=== PATIENT | male | born 1995 | race Caucasian/White ===

== ENCOUNTER 2018-03-08 23:35 | Emergency (ER) | payer SELFPAY ==
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
[2018-03-09] MEDS ORDERED: HYDROcodone 7.5MG/APAP 325MG 1 EA TAB PO ONE (00:12)
[2018-03-09 00:23] VITALS: TEMP 97.3
[2018-03-09] MEDS ORDERED: BACITRACIN 0.9 GM UD PCKT TOP ONE (00:28)
[2018-03-09] MEDS ORDERED: SILVER SULFADIAZINE 1 % 25 GM TUBE TOP ONE (00:28)
[2018-03-09 01:21] VITALS: BP 134/89; O2SAT 98
== END 2018-03-09 01:23 | disposition home or self-care (01) ==
LOC: ER 23:35
DX: T24.212A Burn of second degree of left thigh, initial encounter (principal); T21.26XA Burn of second degree of male genital region, initial encounter; T31.0 Burns involving less than 10% of body surface; X08.8XXA Exposure to other specified smoke, fire and flames, initial encounter; W39.XXXA Discharge of firework, initial encounter; Z88.1 Allergy status to other antibiotic agents

== ENCOUNTER 2018-12-18 18:30 | Emergency (ER) | payer OTHER ==
[2018-12-18] MEDS ORDERED: IPRATROPIUM/ALBUTEROL 3 ML VIAL NEB ONE (19:05)
[2018-12-18] MEDS ORDERED: ONDANSETRON ODT 8 MG TAB SL ONE (19:05)
[2018-12-18] MEDS ORDERED: predniSONE 20 MG TAB PO ONE (19:06)
[2018-12-18] MEDS ORDERED: SUCRALFATE 1 GM/10 ML 1 GM UD PO ONE (19:06)
--- NOTE | 2018-12-18 19:28 | RAD ---
EXAM DESCRIPTION: Chest,2 Views CLINICAL HISTORY: 23 years Male [place], cough COMPARISON: 08/17/2012. FINDINGS: The cardiomediastinal silhouette appears unremarkable. No consolidating infiltrates or pleural effusions. No pneumothorax. IMPRESSION: No acute abnormality is identified. Electronically signed by: Bennie Bojorquez MD 12/18/2018 7:26 PM CDT
[2018-12-18] MEDS ORDERED: AZITHROMYCIN 250 MG TAB PO ONE (19:58)
[2018-12-18] MEDS ORDERED: HYDROcodone 5MG/APAP 325MG 1 EA TAB PO ONE (20:00)
--- NOTE | 2018-12-18 20:01 | ED.PDOC ---
History of Present Illness - General Chief Complaint: Respiratory Problem Stated Complaint: Cough with N&V Time Seen by Provider: 12/18/18 19:05 Source: patient Exam Limitations: no limitations - History of Present Illness Initial Comments: The patient is a 23-year-old male presenting with 3 days of symptoms of cough and mild shortness of breath with epigastric discomfort and nausea and vomiting. He does have a history of asthma but is out of any medications. He does have some mild scattered wheezing. His cough is very consistent with croup. No fevers. He does have a mild sore throat. Mild runny nose. No syncopal or near syncope. Cough is almost uncontrollable. Timing/Duration: other - 3 days Severity: moderate Improving Factors: nothing Worsening Factors: nothing Associated Symptoms: cough, malaise, nausea/vomiting Allergies/Adverse Reactions: Allergies Amoxicillin [From Augmentin] Allergy (Verified 03/09/18 00:12) Clavulanic Acid [From Augmentin] Allergy (Verified 03/09/18 00:12) Home Medications: Ambulatory Orders Acetaminophen W/ Codeine [Tylenol W/ CODEINE #3] 1 ea PO Q6HRS #20 03/09/18 Albuterol Inhaler [Ventolin Hfa Inhaler] 2 puff INH Q4H PRN #1 inh 12/18/18 Azithromycin 500 mg PO DAILY #7 tab 12/18/18 Famotidine 20 mg PO DAILY #30 tab 12/18/18 Guaifenesin-Codeine [Codeine/Guaifenesin 100-10 mg/5Ml] 10 ml PO Q8HR PRN #200 ml 12/18/18 Ondansetron Odt [Zofran ODT] 4 mg PO Q8HR PRN #10 tab 12/18/18 Sucralfate Tab [Carafate Tab] 1 gm PO QID #120 tab 12/18/18 Review of Systems - Review of Systems Constitutional: States: malaise EENTM: States: nose congestion, throat pain Respiratory: States: cough, short of breath, wheezing Cardiology: States: no symptoms reported Gastrointestinal/Abdominal: States: abdominal pain, nausea, vomiting Genitourinary: States: no symptoms reported Musculoskeletal: States: no symptoms reported Skin: States: no symptoms reported Neurological: States: no symptoms reported Endocrine: States: no symptoms reported All other Systems: No Change from Baseline Past Medical History (General) - Patient Medical History Hx Asthma: Yes Hx of COPD: No Hx Cardiac Disorders: No Hx Diabetes: No - Vaccination History Hx Tetanus, Diphtheria Vaccination: Yes Hx Influenza Vaccination: No Hx Pneumococcal Vaccination: No Immunizations Up to Date: No - Social History Hx Tobacco Use: Yes Hx Alcohol Use: No Hx Substance Use: Yes Family Medical History - Family History Father Family History: Unknown Physical Exam - Physical Exam General Appearance: Alert, No apparent distress - coughing incessantly Eye Exam: bilateral normal Ears, Nose, Throat: hearing grossly normal, nasal congestion, pharyngeal erythema Neck: full range of motion, supple Respiratory: no respiratory distress, no accessory muscle use, wheezing - mild scattered Croup-like cough. Mild laryngitis. Cardiovascular/Chest: normal peripheral pulses, regular rate, rhythm, no edema Peripheral Pulses: radial,right: 2+, radial,left: 2+, dorsalis pedis,right: 2+, dorsalis pedis,left: 2+ Gastrointestinal/Abdominal: soft, other - mild epigastric discomfort to palpation. 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 105 H 109 H monitor] Respiratory 20 18 Rate Blood Pressure 136/83 141/91 [left arm] O2 Sat by Pulse 99 97 Oximetry Progress - Progress Progress: 12/18/18 20:03 the patient is a 23-year-old male presenting to the emergency room with respiratory and GI symptoms. From the respiratory standpoint he appears to be having a very mild asthma exacerbation and what clinically appears to be croup. It is uncertain whether this is bacterial or viral. He'll be placed on azithromycin for 7 days in case this is bacterial. He'll be written for an albuterol inhaler for as needed use for his asthma. Additionally he can use a humidifier at night to help reduce cough along with some oral Motrin every 8 hours to reduce inflammation around the vocal cords and upper airways to help reduce cough. He can additionally take Mucinex 2-3 times daily help thin secretions for the same purpose. For the nausea and vomiting, the patient will be written for Zofran for as needed use. He will also be written for Carafate and Pepcid to use for the next month to help reduce gastritis. He can medicinal plant picker some [id number] Maalox to use as needed for gastritis for the next couple of days until other medications get control. He needs to keep himself well hydrated. ER warnings were given for any worsening. Follow up with primary care doctor early next week. - Results/Orders Results/Orders: Laboratory Results - last 24 hr 12/18/18 12/18/18 19:06 19:06 WBC 3.4 L RBC 4.87 Hgb 15.3 Hct 44.0 MCV 90.3 MCH 31.5 H MCHC 34.9 RDW 13.6 Plt Count 122 L MPV 8.9 Absolute Neuts (auto) 2.10 Absolute Lymphs (auto) 0.70 L Absolute Monos (auto) 0.50 Absolute Eos (auto) 0.00 Absolute Basos (auto) 0.00 Neutrophils % 60.8 Lymphocytes % 21.4 Monocytes % 15.7 H Eosinophils % 1.3 Basophils % 0.8 Sodium 138 Potassium 3.7 Chloride 100 L Carbon Dioxide 26 Anion Gap 15.7 BUN 9 Creatinine 0.86 BUN/Creatinine Ratio 10.5 Random Glucose 76 Serum Osmolality 273.1 L Calcium 9.1 Total Bilirubin 1.1 H AST 22 ALT 16 Alkaline Phosphatase 64 Serum Total Protein 7.5 Albumin 4.4 Globulin 3.1 Albumin/Globulin Ratio 1.4 Amylase 37 Lipase 20 L chest x-ray is grossly within normal limits. Departure - Departure Clinical Impression: Croup, Mild dehydration Asthma exacerbation Qualifiers: Asthma severity: mild Asthma persistence: intermittent Qualified Code(s): J45.21 - Mild intermittent asthma with (acute) exacerbation Gastritis Qualifiers: Gastritis type: unspecified gastritis Chronicity: acute Gastritis bleeding: without bleeding Qualified Code(s): K29.00 - Acute gastritis without bleeding Disposition: Discharge to Home or Self Care Condition: Fair Departure Forms: ED Discharge - Pt. Copy, Patient Portal Self Enrollment Instructions: DI for Asthma -- Adult, Croup (DC), Gastritis (DC) Diet: bland diet Activity: increase activity as tolerated Prescriptions: Guaifenesin-Codeine [Codeine/Guaifenesin 100-10 mg/5Ml] 10 ml PO Q8HR PRN #200 ml PRN Reason: Cough Ondansetron Odt [Zofran ODT] 4 mg PO Q8HR PRN #10 tab PRN Reason: Nausea--Moderate Albuterol Inhaler [Ventolin Hfa Inhaler] 2 puff INH Q4H PRN #1 inh PRN Reason: Shortness Of Breath Azithromycin 500 mg PO DAILY #7 tab Famotidine 20 mg PO DAILY #30 tab Sucralfate Tab [Carafate Tab] 1 gm PO QID #120 tab Home Medications: Ambulatory Orders Acetaminophen W/ Codeine [Tylenol W/ CODEINE #3] 1 ea PO Q6HRS #20 03/09/18 Albuterol Inhaler [Ventolin Hfa Inhaler] 2 puff INH Q4H PRN #1 inh 12/18/18 Azithromycin 500 mg PO DAILY #7 tab 12/18/18 Famotidine 20 mg PO DAILY #30 tab 12/18/18 Guaifenesin-Codeine [Codeine/Guaifenesin 100-10 mg/5Ml] 10 ml PO Q8HR PRN #200 ml 12/18/18 Ondansetron Odt [Zofran ODT] 4 mg PO Q8HR PRN #10 tab 12/18/18 Sucralfate Tab [Carafate Tab] 1 gm PO QID #120 tab 12/18/18 Additional Instructions: the patient is a 23-year-old male presenting to the emergency room with respiratory and GI symptoms. From the respiratory standpoint he appears to be having a very mild asthma exacerbation and what clinically appears to be croup. It is uncertain whether this is bacterial or viral. He'll be placed on azithromycin for 7 days in case this is bacterial. He received 1 dose of azithromycin one dose of prednisone here tonight. He'll be written for an albuterol inhaler for as needed use for his asthma. Additionally he can use a humidifier at night to help reduce cough along with some oral Motrin every 8 hours to reduce inflammation around the vocal cords and upper airways to help reduce cough. He can additionally take Mucinex 2-3 times daily help thin secretions for the same purpose. For the nausea and vomiting, the patient will be written for Zofran for as needed use. He will also be written for Carafate and Pepcid to use for the next month to help reduce gastritis. He can medicinal plant picker some [id number] Maalox to use as needed for gastritis for the next couple of days until other medications get control. He needs to keep himself well hydrated. ER warnings were given for any worsening. Follow up with primary care doctor early next week. [id number] Zyrtec may also help as a daily dose and reducing runny nose and secretions triggering cough.
[2018-12-18 20:20] VITALS: BP 104/83; TEMP 99.4; O2SAT 100
== END 2018-12-18 20:20 | disposition home or self-care (01) ==
LOC: ER 18:30
DX: J05.0 Acute obstructive laryngitis [croup] (principal); E86.0 Dehydration; J45.21 Mild intermittent asthma with (acute) exacerbation; R11.2 Nausea with vomiting, unspecified; Z87.891 Personal history of nicotine dependence; Z79.899 Other long term (current) drug therapy; Z88.1 Allergy status to other antibiotic agents
CPT/HCPCS: 36415; 71046; 80053; 82150; 83690; 85025; 87502; 94640; J7512; J7620

== ENCOUNTER 2019-08-08 02:37 | Emergency (ER) | payer OTHER ==
[2019-08-08 02:52] VITALS: TEMP 97.2; O2SAT 99
[2019-08-08] MEDS ORDERED: TETRACAINE HCL 0.5% OPHTH SOL 1 DROP ONE (03:07)
[2019-08-08] MEDS ORDERED: TETRACAINE HCL 0.5% OPHTH SOL 1 DROP LEFT_EYE ONE (03:12)
[2019-08-08] MEDS ORDERED: ERYTHROMYCIN OPHTH OINT 1 APPLIC LEFT_EYE ONE (03:25)
--- NOTE | 2019-08-08 03:28 | ED.PDOC ---
History of Present Illness - General Chief Complaint: Eye Problems Stated Complaint: has wood in his eye Time Seen by Provider: 08/08/19 03:24 Source: patient Exam Limitations: no limitations - History of Present Illness Initial Comments: The patient is a 24-year-old male presented emergency room secondary to discomfort and blurry vision in his left eye after having gotten a foreign body in it 2 days ago while woodworking. No other injury. Timing/Duration: other - 2 days Severity: moderate Improving Factors: nothing Worsening Factors: nothing Associated Symptoms: denies symptoms Allergies/Adverse Reactions: Allergies Amoxicillin [From Augmentin] Allergy (Verified 08/08/19 03:10) Clavulanic Acid [From Augmentin] Allergy (Verified 08/08/19 03:10) Home Medications: Ambulatory Orders Acetaminophen W/ Codeine [Tylenol W/ CODEINE #3] 1 ea PO Q6HRS #20 03/09/18 Albuterol Inhaler [Ventolin Hfa Inhaler] 2 puff INH Q4H PRN #1 inh 12/18/18 Azithromycin 500 mg PO DAILY #7 tab 12/18/18 Famotidine 20 mg PO DAILY #30 tab 12/18/18 Guaifenesin-Codeine [Codeine/Guaifenesin 100-10 mg/5Ml] 10 ml PO Q8HR PRN #200 ml 12/18/18 Ondansetron Odt [Zofran ODT] 4 mg PO Q8HR PRN #10 tab 12/18/18 Sucralfate Tab [Carafate Tab] 1 gm PO QID #120 tab 12/18/18 Review of Systems - Review of Systems Constitutional: States: no symptoms reported EENTM: States: see HPI Respiratory: States: no symptoms reported Cardiology: States: no symptoms reported Gastrointestinal/Abdominal: States: no symptoms reported Genitourinary: States: no symptoms reported Musculoskeletal: States: no symptoms reported Skin: States: no symptoms reported Neurological: States: no symptoms reported Endocrine: States: no symptoms reported All other Systems: No Change from Baseline Past Medical History (General) - Patient Medical History Hx Seizures: No Hx Stroke: No Hx Dementia: No Hx Asthma: Yes Hx of COPD: No Hx Cardiac Disorders: No Hx Congestive Heart Failure: No Hx Pacemaker: No Hx Hypertension: No Hx Thyroid Disease: No Hx Diabetes: No Hx Gastroesophageal Reflux: No Hx Renal Disease: No Hx Cancer: No Hx of HIV: No Hx Hepatitis C: No Hx MRSA: No Surgical History: other - Vaccination History Hx Tetanus, Diphtheria Vaccination: Yes Hx Influenza Vaccination: No Hx Pneumococcal Vaccination: No - Social History Hx Tobacco Use: Yes Hx Chewing Tobacco Use: No Hx Alcohol Use: No Hx Substance Use: No Hx Substance Use Treatment: No Hx Depression: No Feels Threatened In Home Enviroment: No Feels Threatened In a Relationship: No Hx Physical Abuse: No Hx Emotional Abuse: No Hx Suspected Abuse: No - Female History Patient is a Female of Child Bearing Age (10 -59 yrs old): No - Triage Comment ED Triage Comment: The patient had pain in his left eye from wood shavings and the eye appears irritated and is watering. Family Medical History - Family History Father Family History: Unknown Physical Exam - Physical Exam General Appearance: Alert, Comfortable, No apparent distress Eye Exam: right normal, left other - Fluorescein exam shows a small foreign body in the cornea at approximately 9:00. Pupil is reactive. Extraocular movements are intact. No evidence of globe penetration. 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 Risk and benefits of removal were explained and the patient agrees to proceed. Tetracaine drops were applied along with the fluorescein for the exam. A small bur followed by a 20- gauge needle were used for removal of the foreign object. Patient tolerated this well. Erythromycin ointment was applied. The patient needs to use about 1 cm of erythromycin ointment to the left eye every 4 hours for the next 3 days and then every 6 hours for the next 5 or 6 days after that. In between he is to use preservative-free eyedrops to keep the eye moist. He needs to use goggles keep the eye from drying out. Aleve or Advil can be used for discomfort. ER warnings are given for any significant worsening. Vision should start clearing up in about 48 hours. [email or web address] [email or web address] [id number] Departure - Departure Clinical Impression: Corneal injury Qualifiers: Encounter type: initial encounter Laterality: left Qualified Code(s): S05.8X2A - Other injuries of left eye and orbit, initial encounter Disposition: Discharge to Home or Self Care Condition: Fair Departure Forms: ED Discharge - Pt. Copy, Patient Portal Self Enrollment Instructions: Corneal Abrasion (DC) Diet: regular diet Activity: increase activity as tolerated Home Medications: Ambulatory Orders Acetaminophen W/ Codeine [Tylenol W/ CODEINE #3] 1 ea PO Q6HRS #20 03/09/18 Albuterol Inhaler [Ventolin Hfa Inhaler] 2 puff INH Q4H PRN #1 inh 12/18/18 Azithromycin 500 mg PO DAILY #7 tab 12/18/18 Famotidine 20 mg PO DAILY #30 tab 12/18/18 Guaifenesin-Codeine [Codeine/Guaifenesin 100-10 mg/5Ml] 10 ml PO Q8HR PRN #200 ml 12/18/18 Ondansetron Odt [Zofran ODT] 4 mg PO Q8HR PRN #10 tab 12/18/18 Sucralfate Tab [Carafate Tab] 1 gm PO QID #120 tab 12/18/18 Additional Instructions: The patient is a 24-year-old male presented emergency room secondary to a foreign body in the left cornea for the last 2 days. Risk and benefits of removal were explained and the patient agrees to proceed. Tetracaine drops were applied along with the fluorescein for the exam. A small bur followed by a 20- gauge needle were used for removal of the foreign object. Patient tolerated this well. Erythromycin ointment was applied. The patient needs to use about 1 cm of erythromycin ointment to the left eye every 4 hours for the next 3 days and then every 6 hours for the next 5 or 6 days after that. In between he is to use preservative-free eyedrops to keep the eye moist. He needs to use goggles keep the eye from drying out. Aleve or Advil can be used for discomfort. ER warnings are given for any significant worsening. Vision should start clearing up in about 48 hours.
[2019-08-08 03:42] VITALS: BP 134/97
== END 2019-08-08 03:42 | disposition home or self-care (01) ==
LOC: ER 02:37
DX: T15.02XA Foreign body in cornea, left eye, initial encounter (principal); J45.909 Unspecified asthma, uncomplicated; X58.XXXA Exposure to other specified factors, initial encounter; Y93.89 Activity, other specified; Y92.9 Unspecified place or not applicable; Z87.891 Personal history of nicotine dependence; Z88.1 Allergy status to other antibiotic agents

== ENCOUNTER 2019-12-17 03:08 | Emergency (ER) | payer OTHER ==
[2019-12-17] MEDS ORDERED: TETRACAINE HCL 0.5% OPHTH SOL 1 DROP LEFT_EYE ONE (03:25)
[2019-12-17] MEDS ORDERED: TETRACAINE HCL 0.5% OPHTH SOL 1 DROP ONE (03:25)
[2019-12-17] MEDS ORDERED: FLUORESCEIN SODIUM OPHTH STRIP ONE (03:25)
[2019-12-17] MEDS ORDERED: FLUORESCEIN SODIUM OPHTH STRIP LEFT_EYE ONE (03:25)
[2019-12-17 03:30] VITALS: BP 153/94; TEMP 98; O2SAT 98
[2019-12-17] MEDS ORDERED: ERYTHROMYCIN OPHTH OINT 1 APPLIC BOTH_EYES ONE (03:32)
[2019-12-17] MEDS ORDERED: IBUPROFEN 200 MG TAB PO ONE (03:33)
[2019-12-17] MEDS ORDERED: HYDROcodone 7.5MG/APAP 325MG 1 EA TAB PO ONE (03:33)
--- NOTE | 2019-12-17 03:36 | ED.PDOC ---
History of Present Illness - General Chief Complaint: Eye Problems Stated Complaint: I burned my eye welding Wednesday Time Seen by Provider: 12/17/19 03:32 Source: patient Exam Limitations: no limitations - History of Present Illness Initial Comments: The patient is a 24-year-old male presenting secondary to eye pain to bilateral eyes but worse in his left eye starting this evening. The patient did some welding earlier in the day. No contact use. Mild blurry vision. There is increased injection in the conjunctive a primarily of the left eye. Extraocular movements are intact. No proptosis. Pupils are reactive. Fluorescein exam shows no focal defect of there is scattered mild increased fluorescein uptake. Additionally the patient is complaining of a lymphadenopathy just anterior to the left ear as well as just to the left posterior cervical chain. These have been present for about a month according to him. No other complaints. No fevers and no weight loss. Timing/Duration: 4-6 hours Severity: severe Improving Factors: nothing Worsening Factors: nothing Associated Symptoms: denies symptoms Allergies/Adverse Reactions: Allergies Amoxicillin [From Augmentin] Allergy (Verified 08/08/19 03:10) Clavulanic Acid [From Augmentin] Allergy (Verified 08/08/19 03:10) Home Medications: Ambulatory Orders Erythromycin Ophth Oint 0.3 inch BOTH_EYES Q6HR #7 day 12/17/19 levoFLOXacin [Levaquin] 500 mg PO DAILY #10 tab 12/17/19 Review of Systems - Review of Systems Constitutional: States: no symptoms reported EENTM: States: eye pain, blurred vision Respiratory: States: no symptoms reported Cardiology: States: no symptoms reported Gastrointestinal/Abdominal: States: no symptoms reported Genitourinary: States: no symptoms reported Musculoskeletal: States: no symptoms reported Skin: States: no symptoms reported Neurological: States: no symptoms reported Endocrine: States: no symptoms reported Hematologic/Lymphatic: States: swollen glands All other Systems: No Change from Baseline Past Medical History (General) - Patient Medical History Hx Seizures: No Hx Stroke: No Hx Dementia: No Hx Asthma: Yes Hx of COPD: No Hx Cardiac Disorders: No Hx Congestive Heart Failure: No Hx Pacemaker: No Hx Hypertension: No Hx Thyroid Disease: No Hx Diabetes: No Hx Gastroesophageal Reflux: No Hx Renal Disease: No Hx Cancer: No Hx of HIV: No Hx Hepatitis C: No Hx MRSA: No - Vaccination History Hx Tetanus, Diphtheria Vaccination: No Hx Influenza Vaccination: No Hx Pneumococcal Vaccination: No Immunizations Up to Date: No - Social History Hx Tobacco Use: Yes Hx Chewing Tobacco Use: No Hx Alcohol Use: Yes Hx Substance Use: No Hx Substance Use Treatment: No Hx Depression: No Hx Physical Abuse: No Hx Emotional Abuse: No Hx Suspected Abuse: No Family Medical History - Family History Father Family History: Unknown Physical Exam - Physical Exam General Appearance: Alert, No apparent distress Eye Exam: bilateral other - See history of present illness Ears, Nose, Throat: hearing grossly normal, normal pharynx Neck: supple, other - See history of present illness Respiratory: no respiratory distress, no accessory muscle use Cardiovascular/Chest: other - Regular rate Peripheral Pulses: radial,right: 2+, radial,left: 2+ Gastrointestinal/Abdominal: non tender, soft Rectal Exam: deferred Extremity: normal range of motion, no calf tenderness, normal capillary refill 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 The patient will be written for erythromycin ointment to be used 4 times a day for the next week. He can additionally use preservative-free rewetting drops every hour in between to help reduce discomfort. He can also use Motrin or Aleve 2-3 times daily to relieve discomfort. Cool compresses can also help. The patient also has mild scattered lymphadenopathy to the left side of the posterior cervical chain as well as a lymph node just anterior to the left ear. The patient is going to be placed on 10 days of Levaquin, based on allergies. He needs to follow-up with his primary care doctor in about 3 to 4 weeks for repeat evaluation of the lymph nodes. If they are still significantly present then additional work-up would be warranted in the form of blood work and possibly a biopsy. Obviously if things are worsening between now and then then he should seek reevaluation sooner. ER warnings are given for any significant worsening. [email or web address] greer [id number] Departure - Departure Clinical Impression: Keratopathy, Cervical lymphadenopathy Disposition: Discharge to Home or Self Care Condition: Fair Departure Forms: ED Discharge - Pt. Copy, Patient Portal Self Enrollment Instructions: DI for Eye Pain, Lymphadenitis (DC) Diet: regular diet Activity: increase activity as tolerated Prescriptions: Erythromycin Ophth Oint 0.3 inch BOTH_EYES Q6HR #7 day levoFLOXacin [Levaquin] 500 mg PO DAILY #10 tab Home Medications: Ambulatory Orders Erythromycin Ophth Oint 0.3 inch BOTH_EYES Q6HR #7 day 12/17/19 levoFLOXacin [Levaquin] 500 mg PO DAILY #10 tab 12/17/19 Additional Instructions: The patient is a 24-year-old male presented emergency room secondary to thermal keratopathy of bilateral eyes due to welding yesterday. The patient will be written for erythromycin ointment to be used 4 times a day for the next week. He can additionally use preservative-free rewetting drops every hour in between to help reduce discomfort. He can also use Motrin or Aleve 2-3 times daily to relieve discomfort. Cool compresses can also help. The patient also has mild scattered lymphadenopathy to the left side of the posterior cervical chain as well as a lymph node just anterior to the left ear. The patient is going to be placed on 10 days of Levaquin, based on allergies. He needs to follow-up with his primary care doctor in about 3 to 4 weeks for repeat evaluation of the lymph nodes. If they are still significantly present then additional work-up would be warranted in the form of blood work and possibly a biopsy. Obviously if things are worsening between now and then then he should seek reevaluation sooner. ER warnings are given for any significant worsening.
== END 2019-12-17 04:00 | disposition home or self-care (01) ==
LOC: ER 03:08
DX: H16.133 Photokeratitis, bilateral (principal); W89.8XXA Exposure to other man-made visible and ultraviolet light, initial encounter; R59.0 Localized enlarged lymph nodes; J45.909 Unspecified asthma, uncomplicated; Z87.891 Personal history of nicotine dependence; Z88.1 Allergy status to other antibiotic agents; Y92.9 Unspecified place or not applicable; Y93.89 Activity, other specified

== ENCOUNTER 2020-03-01 04:34 | Emergency (ER) | payer MEDICAID, SELFPAY ==
[2020-03-01] MEDS ORDERED: SODIUM CHLORIDE 0.9% 1000ML 1,000 ML IVS ONE (04:49)
[2020-03-01] MEDS ORDERED: ALUM & MAG HYDROX-SIMETHICONE 30 ML, LIDOCAINE VISCOUS 2% 15 ML PO ONE ×2 (04:49)
[2020-03-01] MEDS ORDERED: ONDANSETRON ODT 8 MG TAB SL ONE (04:49)
[2020-03-01] MEDS ORDERED: PANTOPRAZOLE SODIUM IV 40 MG VIAL IV ONE (04:51)
--- NOTE | 2020-03-01 05:24 | RAD ---
EXAM DESCRIPTION: Abdomen Series, 3 Views CLINICAL HISTORY: abd pain COMPARISON: Chest x-ray 12/18/2018 FINDINGS: Cardiac silhouette is within normal limits. There is no focal parenchymal or pleural disease in the chest. No free air. Bowel gas pattern is unremarkable. No evidence of bowel obstruction. There is no acute osseous process visualized. IMPRESSION: No evidence of acute cardiopulmonary disease. No free air. No evidence of bowel obstruction. Electronically signed by: Walter Hernandez MD 03/01/2020 5:22 AM CDT
[2020-03-01] MEDS ORDERED: MAGNESIUM HYDROXIDE 30 ML UD PO ONE (06:10)
[2020-03-01] MEDS ORDERED: FAMOTIDINE 20 MG TAB PO ONE (06:10)
--- NOTE | 2020-03-01 06:13 | ED.PDOC ---
History of Present Illness - General Chief Complaint: Abdominal Pain Stated Complaint: LUQ pain x4 days Time Seen by Provider: 03/01/20 04:45 Source: patient Exam Limitations: no limitations - History of Present Illness Initial Comments: The patient is a 24-year-old male presenting to the emergency room secondary to abdominal pain for the last 4 days. He reports it is mainly localized to the left upper quadrant at this point. He had one episode of vomiting mainly frothy material. No blood. He has had a history of gastritis and reflux disease in the past but has not been on medications in several years. He has had reflux symptoms over that time however. He denies significant constipation or diarrhea. No fever. The patient does report vague diffuse abdominal discomfort but pain is definitely worse in the left upper quadrant. No recent trauma. Mild decreased oral intake. Timing/Duration: other - 4 days Severity: moderate Improving Factors: nothing Worsening Factors: nothing Associated Symptoms: loss of appetite, nausea/vomiting Allergies/Adverse Reactions: Allergies Amoxicillin [From Augmentin] Allergy (Verified 08/08/19 03:10) Clavulanic Acid [From Augmentin] Allergy (Verified 08/08/19 03:10) Home Medications: Ambulatory Orders Erythromycin Ophth Oint 0.3 inch BOTH_EYES Q6HR #7 day 12/17/19 levoFLOXacin [Levaquin] 500 mg PO DAILY #10 tab 12/17/19 Famotidine [Pepcid Tab] 20 mg PO BID #60 tab 03/01/20 Sucralfate Tab [Carafate Tab] 1 gm PO QID #120 tab 03/01/20 Review of Systems - Review of Systems Constitutional: States: malaise EENTM: States: no symptoms reported Respiratory: States: no symptoms reported Cardiology: States: no symptoms reported Gastrointestinal/Abdominal: States: abdominal pain, nausea, vomiting Genitourinary: States: no symptoms reported Musculoskeletal: States: no symptoms reported Skin: States: no symptoms reported Neurological: States: no symptoms reported Endocrine: States: no symptoms reported All other Systems: No Change from Baseline Past Medical History (General) - Patient Medical History Hx Seizures: No Hx Stroke: No Hx Dementia: No Hx Asthma: Yes Hx of COPD: No Hx Cardiac Disorders: No Hx Congestive Heart Failure: No Hx Pacemaker: No Hx Hypertension: No Hx Thyroid Disease: No Hx Diabetes: No Hx Gastroesophageal Reflux: No Hx Renal Disease: No Hx Cancer: No Hx of HIV: No Hx Hepatitis C: No Hx MRSA: No Surgical History: other - Vaccination History Hx Tetanus, Diphtheria Vaccination: Yes Hx Influenza Vaccination: No Hx Pneumococcal Vaccination: No - Social History Hx Tobacco Use: Yes Hx Chewing Tobacco Use: No Hx Alcohol Use: Yes Hx Substance Use: No Hx Substance Use Treatment: No Hx Depression: No Hx Physical Abuse: No Hx Emotional Abuse: No Hx Suspected Abuse: No Family Medical History - Family History Father Family History: Unknown Physical Exam - Physical Exam General Appearance: Alert, Other - Uncomfortable Ears, Nose, Throat: hearing grossly normal, normal pharynx Neck: non-tender, supple Respiratory: lungs clear, normal breath sounds, no respiratory distress, no accessory muscle use Cardiovascular/Chest: normal peripheral pulses, regular rate, rhythm, no edema Peripheral Pulses: radial,right: 2+, radial,left: 2+ Gastrointestinal/Abdominal: other - Mild diffuse voluntary guarding. Point tenderness in the left upper quadrant. No definite rebound. 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 Patient does have a history of gastritis and has had symptoms. We will restart the patient on medications in the form of Pepcid twice daily for the next month as well as Carafate for the next month. He can use liquid Maalox additionally as needed. Needs to maintain a bland diet with small frequent meals. Needs to keep himself hydrated as he was mildly dehydrated here today. He did receive a liter of IV fluids for that. Patient also needs to avoid nicotine and caffeine as well as spicy foods. Additionally he does have mild constipation on the x-ray and did receive a dose of milk of magnesia here today. Remaining well-hydrated should help that issue as well. Laboratory work and vital signs are otherwise reassuring. He does have some moderate hypertension however that is likely reactive and can be followed with his primary care doctor. Return to the emergency room for any significant worsening. ER warnings are given. [email or web address] [email or web address] [id number] - Results/Orders Results/Orders: Acute abdominal series shows no acute pathology. There does appear to be some mild constipation in the ascending colon as well as at the splenic flexure. No free air no obstruction. 03/01/20 05:08 BLOOD CULTURE Stat Laboratory Results - last 24 hr 03/01/20 03/01/20 03/01/20 04:49 04:49 04:49 WBC 5.1 RBC 4.98 Hgb 14.8 Hct 42.7 MCV 85.8 MCH 29.7 MCHC 34.6 RDW 13.3 Plt Count 188 MPV 8.6 Absolute Neuts (auto) 3.20 Absolute Lymphs (auto) 1.30 Absolute Monos (auto) 0.40 Absolute Eos (auto) 0.10 Absolute Basos (auto) 0.00 Neutrophils % 63.0 Lymphocytes % 26.6 Monocytes % 7.7 Eosinophils % 1.8 Basophils % 0.9 Sodium 139 Potassium 3.7 Chloride 101 Carbon Dioxide 27 Anion Gap 14.7 BUN 13 Creatinine 0.89 BUN/Creatinine Ratio 14.6 Random Glucose 100 Serum Osmolality 277.7 Lactic Acid 0.7 Calcium 9.0 Magnesium 2.1 Total Bilirubin 0.9 AST 17 ALT 16 Alkaline Phosphatase 78 Creatine Kinase 204 H* CK-MB (CK-2) 1.2 CK-MB (CK-2) % Not Reportable Troponin I < 0.02 Serum Total Protein 7.9 Albumin 4.8 Globulin 3.1 Albumin/Globulin Ratio 1.5 Amylase 46 Lipase 26 Urine Color Urine Appearance Urine pH Ur Specific [place] Urine Protein Urine Glucose (UA) Urine Ketones Urine Blood Urine Nitrite Urine Bilirubin Urine Urobilinogen Ur Leukocyte Esterase Urine RBC Urine WBC Ur Epithelial Cells Urine Bacteria Urine Mucus 03/01/20 05:34 WBC RBC Hgb Hct MCV MCH MCHC RDW Plt Count MPV Absolute Neuts (auto) Absolute Lymphs (auto) Absolute Monos (auto) Absolute Eos (auto) Absolute Basos (auto) Neutrophils % Lymphocytes % Monocytes % Eosinophils % Basophils % Sodium Potassium Chloride Carbon Dioxide Anion Gap BUN Creatinine BUN/Creatinine Ratio Random Glucose Serum Osmolality Lactic Acid Calcium Magnesium Total Bilirubin AST ALT Alkaline Phosphatase Creatine Kinase CK-MB (CK-2) CK-MB (CK-2) % Troponin I Serum Total Protein Albumin Globulin Albumin/Globulin Ratio Amylase Lipase Urine Color Yellow Urine Appearance Clear Urine pH 6.0 Ur Specific [place] >= 1.030 Urine Protein Trace Urine Glucose (UA) Negative Urine Ketones Negative Urine Blood Negative Urine Nitrite Negative Urine Bilirubin Negative Urine Urobilinogen 0.2 Ur Leukocyte Esterase Negative Urine RBC 0 Urine WBC 0 Ur Epithelial Cells 0 Urine Bacteria 0 Urine Mucus Trace Departure - Departure Clinical Impression: Mild dehydration, Benign reactive hypertension Gastritis Qualifiers: Gastritis type: unspecified gastritis Chronicity: chronic Gastritis bleeding: without bleeding Qualified Code(s): K29.50 - Unspecified chronic gastritis without bleeding Constipation Qualifiers: Constipation type: unspecified constipation type Qualified Code(s): K59.00 - Constipation, unspecified Disposition: Discharge to Home or Self Care Condition: Fair Departure Forms: ED Discharge - Pt. Copy, Patient Portal Self Enrollment Instructions: DI for Abdominal Pain-Adult, Gastritis (DC) Diet: bland diet Activity: increase activity as tolerated Prescriptions: Sucralfate Tab [Carafate Tab] 1 gm PO QID #120 tab Famotidine [Pepcid Tab] 20 mg PO BID #60 tab Home Medications: Ambulatory Orders Erythromycin Ophth Oint 0.3 inch BOTH_EYES Q6HR #7 day 12/17/19 levoFLOXacin [Levaquin] 500 mg PO DAILY #10 tab 12/17/19 Famotidine [Pepcid Tab] 20 mg PO BID #60 tab 03/01/20 Sucralfate Tab [Carafate Tab] 1 gm PO QID #120 tab 03/01/20 Additional Instructions: The patient is a 24-year-old male presented emergency room secondary to 4 days of abdominal discomfort and an episode of vomiting. Patient does have a history of gastritis and has had symptoms. We will restart the patient on medications in the form of Pepcid twice daily for the next month as well as Carafate for the next month. He can use liquid Maalox additionally as needed. Needs to maintain a bland diet with small frequent meals. Needs to keep himself hydrated as he was mildly dehydrated here today. He did receive a liter of IV fluids for that. Patient also needs to avoid nicotine and caffeine as well as spicy foods. Additionally he does have mild constipation on the x-ray and did receive a dose of milk of magnesia here today. Remaining well-hydrated should help that issue as well. Laboratory work and vital signs are otherwise reassuring. He does have some moderate hypertension however that is likely reactive and can be followed with his primary care doctor. Return to the emergency room for any significant worsening. ER warnings are given.
[2020-03-01 06:17] VITALS: O2SAT 98
[2020-03-01 06:24] VITALS: BP 157/114; TEMP 97.7
== END 2020-03-01 06:24 | disposition home or self-care (01) ==
LOC: ER 04:34
DX: K29.50 Unspecified chronic gastritis without bleeding (principal); E86.0 Dehydration; I10 Essential (primary) hypertension; K59.00 Constipation, unspecified; Z87.891 Personal history of nicotine dependence; Z79.899 Other long term (current) drug therapy; Z88.1 Allergy status to other antibiotic agents
CPT/HCPCS: 36415; 74019; 80053; 81001; 82150; 82550; 82553; 83605; 83690; 83735; 84484; 85025; 87040; 87635; J7030

== ENCOUNTER 2020-05-31 17:17 | Emergency (ER) | payer MEDICAID, OTHER ==
[2020-05-31] MEDS ORDERED: SODIUM CHLORIDE 0.9% 1000ML 1,000 ML IVS ONE ×2 (17:22→23:14)
--- NOTE | 2020-05-31 17:25 | ED.PDOC ---
History of Present Illness - History of Present Illness Initial Comments: 24-year-old male no known past medical history presents via EMS to ED for complaint of suicide attempt. EMS reports that they were called to scene by family and notified that he locked himself in his shed. Patient appeared to be combative and likely have overdosed on unknown substance. Patient was found with multiple vitamin bottles In the vicinity. Patient also has self-inflicted superficial cut wounds to his left anterior wrist as well as old well-healed similar self-inflicted wounds. Patient was given 2 mg IM Ativan, 50 mg IM Benadryl, 5 mg IM Haldol. Patient has since called for them but remains altered. <Cipriano Rodriguez - Last Filed: 06/01/20 06:33> <Laly Gray - Last Filed: 06/01/20 23:34> - General Time Seen by Provider: 05/31/20 17:21 - History of Present Illness Allergies/Adverse Reactions: Allergies Amoxicillin [From Augmentin] Allergy (Verified 08/08/19 03:10) Clavulanic Acid [From Augmentin] Allergy (Verified 08/08/19 03:10) Home Medications: Ambulatory Orders NK 05/31/20 Review of Systems - Review of Systems Respiratory: Denies: short of breath Cardiology: Denies: chest pain Unable to Obtain Due To: clinical condition <Cipriano Rodriguez - Last Filed: 06/01/20 06:33> Past Medical History (General) - Patient Medical History Hx Seizures: No Hx Stroke: No Hx Dementia: No Hx Asthma: Yes Hx of COPD: No Hx Cardiac Disorders: No Hx Congestive Heart Failure: No Hx Pacemaker: No Hx Hypertension: No Hx Thyroid Disease: No Hx Diabetes: No Hx Gastroesophageal Reflux: No Hx Renal Disease: No Hx Cancer: No Hx of HIV: No Hx Hepatitis C: No Hx MRSA: No - Vaccination History Hx Tetanus, Diphtheria Vaccination: Yes Hx Influenza Vaccination: No Hx Pneumococcal Vaccination: No - Social History Hx Tobacco Use: Yes Hx Chewing Tobacco Use: No Hx Alcohol Use: Yes Hx Substance Use: No Hx Substance Use Treatment: No Hx Depression: No Hx Physical Abuse: No Hx Emotional Abuse: No Hx Suspected Abuse: No <Cipriano Rodriguez - Last Filed: 06/01/20 06:33> Family Medical History - Family History Father Family History: Unknown <Cipriano Rodriguez - Last Filed: 06/01/20 06:33> Physical Exam - Physical Exam General Appearance: Agitated, Obvious distress Eyes, Ears, Nose, Throat Exam: PERRL/EOMI, normal ENT inspection Neck: full range of motion, supple, normal inspection Respiratory: lungs clear, normal breath sounds, no respiratory distress, no accessory muscle use Cardiovascular/Chest: normal peripheral pulses, regular rate, rhythm, no edema, no gallop, no JVD, no murmur Peripheral Pulses: radial,right: 2+, radial,left: 2+, dorsalis pedis,right: 2+, dorsalis pedis,left: 2+, posterior tibialis,right: 2+, posterior tibialis,left: 2+ Gastrointestinal/Abdominal: normal bowel sounds, non tender, soft Extremities Exam: no edema, other - left anterior distal forearm with superficial lacerations consistent with being self inflicted, not requiring repair Neurological: other - GCS 13 upon arrival, not alert or oriented, appears to be hallucinating Appearance: disheveled Behavior/Eye Contact/Speech: avoids eye contact Thoughts/Hallucinations: visual hallucinations Skin Exam: normal color, warm/dry, other - not diaphoretic <Cipriano Rodriguez - Last Filed: 06/01/20 06:33> Progress - Progress Progress: Cipriano Rodriguez DO Emergency Medicine Phys[id number] Appropriate PPE of surgical mask, gown, gloves, and eye protection (if encounter >5 minutes) utilized with every patient encounter; in accordance with hospital policy. Presents for suicidal attempt with reported overdose of unknown substance. No signs of toxodrome. I will perform labs, EKG, imaging, provide appropriate pharmacotherapy, and continue to monitor/reassess. Dispo will depend on labs, EKG, imaging results and overall course in ED; however, inpatient psychiatric transfer/admission expected. Multiple rechecks of pt throughout the night. NAD, VSS. No acute decompensations while in the ED. - Results/Orders Results/Orders: EKG @1722: read @1725. NSR @ 100, nl axis, intervals wnl, no ST elevations/depressions, nonspecific ST/T-wave changes. +artifact. No STEMI. No prior EKGs in [facility] for comparison. 05/31/20 17:30 EKG STAT 05/31/20 18:24 Catheter:Straight .ONCE 06/01/20 06:39 Tetanus,Diphtheria,Pertussis [Boostrix] 1 ea IM .ONCE ONE Laboratory Results - last 24 hr 05/31/20 05/31/20 05/31/20 17:21 17:35 17:35 WBC 4.3 L RBC 4.62 L Hgb 13.5 L Hct 39.6 L MCV 85.8 MCH 29.3 MCHC 34.1 RDW 13.7 Plt Count 153 MPV 8.4 Absolute Neuts (auto) 2.90 Absolute Lymphs (auto) 0.80 L Absolute Monos (auto) 0.50 Absolute Eos (auto) 0.00 Absolute Basos (auto) 0.00 Neutrophils % 67.3 Lymphocytes % 19.5 L Monocytes % 11.7 H Eosinophils % 0.6 L Basophils % 0.9 Sodium 138 Potassium 3.9 Chloride 102 Carbon Dioxide 25 Anion Gap 14.9 BUN 14 Creatinine 0.78 BUN/Creatinine Ratio 17.9 Random Glucose 91 Serum Osmolality 275.7 Lactic Acid Calcium 8.8 Magnesium 2.2 Total Bilirubin 0.7 AST 32 ALT 29 Alkaline Phosphatase 92 Troponin I Serum Total Protein 7.6 Albumin 4.4 Globulin 3.2 Albumin/Globulin Ratio 1.4 TSH 3.50 Urine Color Yellow Urine Appearance Clear Urine pH 7.0 Ur Specific [place] 1.015 Urine Protein Negative Urine Glucose (UA) Negative Urine Ketones Negative Urine Blood Negative Urine Nitrite Negative Urine Bilirubin Negative Urine Urobilinogen 0.2 Ur Leukocyte Esterase Negative Urine RBC 0-1 Urine WBC 0-1 Ur Epithelial Cells 0 Urine Bacteria 0 Salicylates Urine Opiates Screen Acetaminophen Urine Barbiturates Ur Phencyclidine Scrn U Amphetamin/Meth Scrn U Benzodiazepines Scrn U Cocaine Metab Screen U Cannabinoids Screen Ethyl Alcohol 05/31/20 05/31/20 05/31/20 17:35 17:35 17:35 WBC RBC Hgb Hct MCV MCH MCHC RDW Plt Count MPV Absolute Neuts (auto) Absolute Lymphs (auto) Absolute Monos (auto) Absolute Eos (auto) Absolute Basos (auto) Neutrophils % Lymphocytes % Monocytes % Eosinophils % Basophils % Sodium Potassium Chloride Carbon Dioxide Anion Gap BUN Creatinine BUN/Creatinine Ratio Random Glucose Serum Osmolality Lactic Acid 1.3 Calcium Magnesium Total Bilirubin AST ALT Alkaline Phosphatase Troponin I < 0.02 Serum Total Protein Albumin Globulin Albumin/Globulin Ratio TSH Urine Color Urine Appearance Urine pH Ur Specific [place] Urine Protein Urine Glucose (UA) Urine Ketones Urine Blood Urine Nitrite Urine Bilirubin Urine Urobilinogen Ur Leukocyte Esterase Urine RBC Urine WBC Ur Epithelial Cells Urine Bacteria Salicylates Urine Opiates Screen Acetaminophen Urine Barbiturates Ur Phencyclidine Scrn U Amphetamin/Meth Scrn U Benzodiazepines Scrn U Cocaine Metab Screen U Cannabinoids Screen Ethyl Alcohol < 5.40 05/31/20 05/31/20 17:35 20:22 WBC RBC Hgb Hct MCV MCH MCHC RDW Plt Count MPV Absolute Neuts (auto) Absolute Lymphs (auto) Absolute Monos (auto) Absolute Eos (auto) Absolute Basos (auto) Neutrophils % Lymphocytes % Monocytes % Eosinophils % Basophils % Sodium Potassium Chloride Carbon Dioxide Anion Gap BUN Creatinine BUN/Creatinine Ratio Random Glucose Serum Osmolality Lactic Acid Calcium Magnesium Total Bilirubin AST ALT Alkaline Phosphatase Troponin I Serum Total Protein Albumin Globulin Albumin/Globulin Ratio TSH Urine Color Urine Appearance Urine pH Ur Specific [place] Urine Protein Urine Glucose (UA) Urine Ketones Urine Blood Urine Nitrite Urine Bilirubin Urine Urobilinogen Ur Leukocyte Esterase Urine RBC Urine WBC Ur Epithelial Cells Urine Bacteria Salicylates < 4.0 Urine Opiates Screen Negative Acetaminophen < 10.0 L Urine Barbiturates Negative Ur Phencyclidine Scrn Negative U Amphetamin/Meth Scrn Positive H U Benzodiazepines Scrn Negative U Cocaine Metab Screen Negative U Cannabinoids Screen Negative Ethyl Alcohol EXAM: Head HISTORY: 24 years Male AMS COMPARISON: None TECHNIQUE: Contiguous axial images of the head were obtained from the skull base through t he vertex without IV contrast followed by multiplanar reformats. This exam was performed according to our departmental dose-optimization program, which includes automated exposure control, adjustment of the mA and/or kV according to patient size and/or use of iterative reconstruction technique. FINDINGS: Motion limited study. Brain volume is commensurate with patient age. No hydrocephalus. No midline shift, mass effect or abnormal extraaxial collection. No acute intracranial hemorrhage or infarct. White matter is within normal limits. Orbital contents are unremarkable. The paranasal sinuses and mastoid air cells are well pneumatized. No acute calvarial abnormality. IMPRESSION: 1. Motion limited study. No discernible acute intracranial pathology. Electronically signed by: Erik Hernandez MD 05/31/2020 8:15 PM [employer] Vital Signs - 24 hr 05/31/20 05/31/20 05/31/20 17:20 17:21 18:00 Temperature 99.2 F Pulse Rate Pulse Rate [ 103 H 103 H 97 H Pulse ox] Respiratory 22 22 30 H Rate Blood Pressure 161/101 153/106 [R arm] O2 Sat by Pulse 94 L 99 Oximetry 05/31/20 05/31/20 05/31/20 19:00 20:26 21:31 Temperature 97.1 F L Pulse Rate Pulse Rate [ 92 H 102 H 89 Pulse ox] Respiratory 30 H 30 H 30 H Rate Blood Pressure 151/103 155/110 161/103 [R arm] O2 Sat by Pulse 100 100 100 Oximetry 05/31/20 05/31/20 06/01/20 22:05 23:00 00:09 Temperature Pulse Rate Pulse Rate [ 96 H 98 H 92 H Pulse ox] Respiratory 30 H 30 H 30 H Rate Blood Pressure 152/102 162/112 145/112 [R arm] O2 Sat by Pulse 96 99 100 Oximetry 06/01/20 06/01/20 02:00 04:17 Temperature Pulse Rate 82 82 Pulse Rate [ 88 82 Pulse ox] Respiratory 30 H 30 H Rate Blood Pressure 136/108 150/79 [R arm] O2 Sat by Pulse 100 100 Oximetry <Cipriano Rodriguez - Last Filed: 06/01/20 06:33> - Results/Orders Results/Orders: Patient awake, alert, responsive. States he doesn't recall any events from yesterday. Denies any SI/HI. WIll call [facility]. Tdap given. delay in dispo patient was not alert enough to be evaluated by [facility]. [facility] evaluated patient, patient currently denies SI/HI. [facility] states patient okay to go home, I agree. Is going to try to get him in drug rehab on Wednesday. Aunt feels comfortable taking patient home. The data reviewed when caring for this patient included: nurse notes, prior records, etc. The history and assessments from nurses notes were reviewed and considered, and the patient's home medication list was also reviewed and considered. My assessment and the results of testing completed here in the ED were discussed with the p atient/family. All questions were answered, and they express understanding of my assessment and the plan. They have been instructed to return if their symptoms worsen, and have been asked to follow up with their primary care physician to recheck today's presenting complaint. Strict return precautions given. patient discharged home in stable condition. Laly Gray DO #[id number] <Laly Gray - Last Filed: 06/01/20 23:34> Departure - Departure Time of Disposition: 19:13 <Cipriano Rodriguez - Last Filed: 06/01/20 06:33> - Departure Diet: resume usual diet Activity: increase activity as tolerated <Laly Gray - Last Filed: 06/01/20 23:34> - Departure Clinical Impression: Methamphetamine abuse, Suicide attempt, History of attempted suicide, Drug intoxication with delirium AMS (altered mental status) Qualifiers: Altered mental status type: transient alteration of awareness Qualified Code(s): R40.4 - Transient alteration of awareness Disposition: Discharge to Home or Self Care Condition: Fair Instructions: Drug Abuse and Drug Addiction (DC), Methamphetamine, Suicide Prevention, Self-Harm (DC) Referrals: BHUMI TAYLOR [Primary Care Provider] - 1-2 Days Home Medications: Ambulatory Orders NK 05/31/20
[2020-05-31] MEDS ORDERED: ZIPRASIDONE INJ 20 MG/ML VIAL IM ONE (19:04)
--- NOTE | 2020-05-31 20:17 | CT ---
EXAM: Head HISTORY: 24 years Male AMS COMPARISON: None TECHNIQUE: Contiguous axial images of the head were obtained from the skull base through the vertex without IV contrast followed by multiplanar reformats. This exam was performed according to our departmental dose-optimization program, which includes automated exposure control, adjustment of the mA and/or kV according to patient size and/or use of iterative reconstruction technique. FINDINGS: Motion limited study. Brain volume is commensurate with patient age. No hydrocephalus. No midline shift, mass effect or abnormal extraaxial collection. No acute intracranial hemorrhage or infarct. White matter is within normal limits. Orbital contents are unremarkable. The paranasal sinuses and mastoid air cells are well pneumatized. No acute calvarial abnormality. IMPRESSION: 1. Motion limited study. No discernible acute intracranial pathology. Electronically signed by: Erik Hernandez MD 05/31/2020 8:[address] [facility]
[2020-06-01] MEDS ORDERED: TETANUS,DIPHTHERIA,PERTUSSIS 1 EA SYG IM ONE ×2 (06:39→19:19)
[2020-06-01 23:57] VITALS: O2SAT 100
[2020-06-02] VITALS: BP 154/102; TEMP 97.8
== END 2020-06-01 23:30 | disposition home or self-care (01) ==
LOC: ER 17:17
DX: F15.121 Other stimulant abuse with intoxication delirium (principal); S61.512A Laceration without foreign body of left wrist, initial encounter; R40.4 Transient alteration of awareness; R45.851 Suicidal ideations; J45.909 Unspecified asthma, uncomplicated; X78.9XXA Intentional self-harm by unspecified sharp object, initial encounter; Z91.5 Personal history of self-harm; Z87.891 Personal history of nicotine dependence; Z88.1 Allergy status to other antibiotic agents; Y92.89 Other specified places as the place of occurrence of the external cause
CPT/HCPCS: 36415; 70450; 80053; 80307; 80320; 80329; 81001; 83605; 83735; 84443; 84484; 85025; 93005; J2060; J3486; J7030